=== PATIENT | female | born 1935 | race Caucasian/White ===

== ENCOUNTER 2021-03-25 18:39 | Inpatient (IN) | payer MEDICARE ==
[~2021-03-25] VITALS: Ht 175.3 cm; Wt 77.1 kg
[~2021-03-25 18:39] MED LIST: AFRIN; ASPIRIN81 MG PO; ATORVASTATIN CA20 MG PO; BENTYL 20MG TAB20 MG PO; BUSPAR 5MG TABLE5 MG PO; CEFUROXIME250 MG PO; CELEBREX 200MG200 MG PO; CELEBREX200 MG PO; CELECOXIB100 MG PO; CYCLOBENZAPRINE10 MG PO; EVISTA60 MG PO; FLAGYL500 MG PO; HYDROCODON-ACE1 EAC4 PO; INDERAL TAB 4040 MG PO; ISOSORBIDE MONO30 MG PO; K-DUR TAB 10 M10 MEQ PO; K-DUR TAB 20 M20 MEQ PO; LASIX20 MG PO; LEVOFLOXACIN250 MG PO; LEVOTHYROXINE50 MCG PO; LIPITOR TAB 1010 MG PO; LISINOPRIL10 MG PO; LOPRESSOR 25 MG25 MG PO; MACROBID 100 M100 MG PO; MEDROL DOSEPAK 24 MG PO; MUCINEX600 MG PO; NEURONTIN300 MG PO; NEXIUM40 MG PO; NITRO-DUR 0.2 MG1 EA TD; NITROFURANTOIN50 MG PO; NORCO 5-325 TA1 EACH PO; OMNICEF 300 MG300 MG PO; PHENERGAN 12.12.5 M1 PO; PROVENTIL HFA6.7 GM INH; SENNA-TIME S T1 EACH PO; SEROQUEL TAB 2525 MG PO; SEROQUEL25 MG PO; SYNTHROID300 MCG PO; TELMISARTAN-HC1 EAC1 PO; THERAGRAN M TAB1 EA PO; TYLENOL WITH C1 EACH PO; ULTRAM50 MG PO; VALIUM 5 MG TAB5 MG PO; VALIUM5 MG PO; VENTOLIN HFA INH; VOLTAREN EC 5050 MG PO; WELLBUTRIN XL300 M1 PO; ZITHROMAX TRI-500 MG PO; ZOFRAN ODT 4 MG4 MG SL
[2021-03-25 19:58] LABS: HEMOGLOBIN 12.8 gm/dl (12.3-15.3); RED BLOOD COUNT 3.88 M/UL (4.00-5.10); WHITE BLOOD COUNT 5.5 K/UL (4.5-11.0)
--- NOTE | 2021-03-26 01:24 | NUR ---
UPON DOING PT ADMISSION, PT WAS NOT ABLE TO DEFINITIVELY SAY WHAT PHARMACY SHE USES. PT ALSO DOES NOT KNOW THE NAMES OR DOSES OF ANY MEDICATION SHE TAKES. DAUGHTER TO BE CALLED IN AM FOR PHARMACY NAME AND PHARMACY WILL BE CONTACTED FOR HOME MED LIST IN AM DURING OPERATING HOURS. NOTIFIED.
[2021-03-26 05:20] LABS: HEMOGLOBIN 14.3 gm/dl (12.3-15.3)
[2021-03-26 05:21] LABS: RED BLOOD COUNT 4.42 M/UL (4.00-5.10); WHITE BLOOD COUNT 7.9 K/UL (4.5-11.0)
[2021-03-26 05:40] LABS: BUN/CREATININE RATIO 18 (0-10)
[2021-03-26] MEDS ORDERED: SYNTHROID50 MCG PO (08:23)
[2021-03-26] MEDS ORDERED: LISINOPRIL20 MG PO (08:23)
[2021-03-26] MEDS ORDERED: LOPRESSOR 25 MG25 MG PO (08:24)
[2021-03-26] MEDS ORDERED: HYDROCODONE-AC1 EACH PO (09:17)
[2021-03-26] MEDS ORDERED: GABAPENTIN300 MG PO (09:18)
[2021-03-26] MEDS ORDERED: DITROPAN 5 MG TA5 MG PO (09:18)
[2021-03-27 03:04] LABS: HEMOGLOBIN 14.2 gm/dl (12.3-15.3); RED BLOOD COUNT 4.43 M/UL (4.00-5.10); WHITE BLOOD COUNT 9.2 K/UL (4.5-11.0)
[2021-03-27] MEDS ORDERED: HYDROCODON-ACE1 EAC4 PO (21:37)
[2021-03-27] MEDS ORDERED: LEVOFLOXACIN500 MG PO (21:37)
[2021-03-28 03:04] LABS: RED BLOOD COUNT 4.02 M/UL (4.00-5.10); WHITE BLOOD COUNT 8.7 K/UL (4.5-11.0)
[2021-03-28] MEDS ORDERED: ASPIRIN EC81 MG PO (08:53)
[2021-03-28] MEDS ORDERED: ISOSORBIDE MONO30 MG PO (08:53)
[2021-03-28] MEDS ORDERED: LISINOPRIL40 MG PO (08:53)
[2021-03-29 01:35] LABS: HEMOGLOBIN 12.9 gm/dl (12.3-15.3); RED BLOOD COUNT 3.97 M/UL (4.00-5.10); WHITE BLOOD COUNT 8.4 K/UL (4.5-11.0)
[2021-03-29] MEDS ORDERED: NORVASC10 MG PO (08:49)
[2021-03-29] MEDS ORDERED: HYDRALAZINE HCL25 MG PO (08:49)
== END 2021-03-29 09:53 | disposition home health service (06) | DRG 242 ==
LOC: ER1 18:39 → CDU 22:38 → MED SURG 4 22:38 → PROG CARE 03-26 17:19
PROVIDERS: Emergency Medicine; Internal Medicine; ADMIT Internal Medicine
PROC: B24BZZ4 Ultrasonography of Heart with Aorta, Transesophageal (ICD-10-PCS; 2021-03-26)
PROC: 4A027FZ Measurement of Cardiac Rhythm, Via Natural or Artificial Opening (ICD-10-PCS; 2021-03-26)
PROC: 4A0274Z Measurement of Cardiac Electrical Activity, Via Natural or Artificial Opening (ICD-10-PCS; 2021-03-26)
PROC: 0JH606Z Insertion of Pacemaker, Dual Chamber into Chest Subcutaneous Tissue and Fascia, Open Approach (ICD-10-PCS; principal; 2021-03-27)
PROC: 02H63JZ Insertion of Pacemaker Lead into Right Atrium, Percutaneous Approach (ICD-10-PCS; 2021-03-27)
PROC: 02HK3JZ Insertion of Pacemaker Lead into Right Ventricle, Percutaneous Approach (ICD-10-PCS; 2021-03-27)
PROC: 02HV33Z Insertion of Infusion Device into Superior Vena Cava, Percutaneous Approach (ICD-10-PCS; 2021-03-27)
DX: I44.2 Atrioventricular block, complete (principal); G92 Toxic encephalopathy; I16.1 Hypertensive emergency; I50.32 Chronic diastolic (congestive) heart failure; N39.0 Urinary tract infection, site not specified; Z20.822 Contact with and (suspected) exposure to COVID-19; G89.29 Other chronic pain; Z96.641 Presence of right artificial hip joint; I44.7 Left bundle-branch block, unspecified; I11.0 Hypertensive heart disease with heart failure; I49.5 Sick sinus syndrome; I08.1 Rheumatic disorders of both mitral and tricuspid valves; F10.10 Alcohol abuse, uncomplicated; F17.210 Nicotine dependence, cigarettes, uncomplicated; E03.9 Hypothyroidism, unspecified; R53.81 Other malaise; Z88.0 Allergy status to penicillin; Z90.49 Acquired absence of other specified parts of digestive tract; Z82.49 Family history of ischemic heart disease and other diseases of the circulatory system; Z83.6 Family history of other diseases of the respiratory system; Z79.82 Long term (current) use of aspirin; Z79.01 Long term (current) use of anticoagulants
CPT/HCPCS: ECHO; 33208; 36415; 36600; 70450; 71045; 71250; 74150; 78452; 80048; 80053; 81001; 82140; 82550; 82553; 82803; 82962; 83605; 83690; 83735; 83874; 84100; 84439; 84443; 84484; 85025; 86140; 93005; 93017; 93306; 96374; 96375; 96376; 99152; 99153; 99285; A9502; C1898; C2621; G0378; J0360; J1644; J1650; J2250; J2270; J2310; J2405; J2785; J3010; J3370; J7040; J7050; J7070; U0002

== ENCOUNTER 2021-04-05 14:38 | Observation (INO) | payer MEDICARE ==
[~2021-04-05] VITALS: Ht 175.3 cm; Wt 74.8 kg
[~2021-04-05 14:38] MED LIST changes: +ASPIRIN EC81 MG PO; +DITROPAN 5 MG TA5 MG PO; +GABAPENTIN300 MG PO; +HYDRALAZINE HCL25 MG PO; +HYDROCODONE-AC1 EACH PO; +LEVOFLOXACIN500 MG PO; +LISINOPRIL20 MG PO; +LISINOPRIL40 MG PO; +NORVASC10 MG PO; +SYNTHROID50 MCG PO
[2021-04-05 15:45] LABS: RED BLOOD COUNT 4.03 M/UL (4.00-5.10); WHITE BLOOD COUNT 8.5 K/UL (4.5-11.0)
[2021-04-05] MEDS ORDERED: NYSTATIN1 EAC6 MC (19:57)
[2021-04-06 04:26] LABS: WHITE BLOOD COUNT 6.5 K/UL (4.5-11.0)
[2021-04-06 04:27] LABS: RED BLOOD COUNT 3.42 M/UL (4.00-5.10)
[2021-04-06 04:55] LABS: BUN/CREATININE RATIO 16 (0-10)
== END 2021-04-06 17:52 | disposition home or self-care (01) ==
LOC: ER1 14:38 → CDU 17:03 → MED SURG 4 17:03
PROVIDERS: Emergency Medicine; ADMIT Internal Medicine
DX: R55 Syncope and collapse (principal); I95.1 Orthostatic hypotension; N17.9 Acute kidney failure, unspecified; R10.9 Unspecified abdominal pain; I44.2 Atrioventricular block, complete; I44.7 Left bundle-branch block, unspecified; I11.0 Hypertensive heart disease with heart failure; I50.32 Chronic diastolic (congestive) heart failure; E03.9 Hypothyroidism, unspecified; G89.29 Other chronic pain; M54.9 Dorsalgia, unspecified; Z20.822 Contact with and (suspected) exposure to COVID-19; Z88.0 Allergy status to penicillin; Z79.82 Long term (current) use of aspirin; Z79.899 Other long term (current) drug therapy; Z95.0 Presence of cardiac pacemaker
CPT/HCPCS: 70450; 71045; 80048; 80053; 82550; 82553; 83690; 83735; 83874; 83880; 84100; 84484; 85025; 85610; 85730; 86140; 93005; 99285; G0378; J7030; U0002

== ENCOUNTER 2021-04-26 20:09 | Emergency (ER) | payer MEDICARE ==
[~2021-04-26 20:09] MED LIST changes: +NYSTATIN1 EAC6 MC
[2021-04-26] MEDS ORDERED: BUSPIRONE HCL5 MG PO (21:06)
[2021-04-26] MEDS ORDERED: HYDROCODONE-AC1 EACH PO (21:06)
[2021-04-26] MEDS ORDERED: NEURONTIN300 MG PO (21:06)
== END 2021-04-26 21:15 | disposition home or self-care (01) ==
LOC: ER1 20:09
DX: Z76.0 Encounter for issue of repeat prescription (principal); M54.5 Low back pain; F41.9 Anxiety disorder, unspecified
CPT/HCPCS: 99281

== ENCOUNTER 2021-06-21 18:07 | Observation (INO) | payer MEDICARE ==
[~2021-06-21] VITALS: Ht 167.6 cm; Wt 84.4 kg
[~2021-06-21 18:07] MED LIST changes: +BUSPIRONE HCL5 MG PO
[2021-06-21 19:31] LABS: HEMOGLOBIN 14.9 gm/dl (12.3-15.3); RED BLOOD COUNT 4.86 M/UL (4.00-5.10); WHITE BLOOD COUNT 8.9 K/UL (4.5-11.0)
[2021-06-21 19:55] LABS: BUN/CREATININE RATIO 17 (0-10)
[2021-06-22 07:41] LABS: HEMOGLOBIN 13.4 gm/dl (12.3-15.3); RED BLOOD COUNT 4.39 M/UL (4.00-5.10)
[2021-06-22 07:45] LABS: WHITE BLOOD COUNT 12.1 K/UL (4.5-11.0)
[2021-06-22 08:09] LABS: BUN/CREATININE RATIO 21 (0-10)
[2021-06-23 07:03] LABS: HEMOGLOBIN 11.8 gm/dl (12.3-15.3); RED BLOOD COUNT 3.83 M/UL (4.00-5.10); WHITE BLOOD COUNT 9.5 K/UL (4.5-11.0)
[2021-06-24] MEDS ORDERED: METOPROLOL SUCC50 MG PO (13:57)
[2021-06-24] MEDS ORDERED: AMLODIPINE BESYL5 MG PO (13:57)
== END 2021-06-24 15:16 | disposition home health service (06) ==
LOC: ER1 18:07 → CDU 22:20 → M/S 22:20
PROVIDERS: Family Medicine; Internal Medicine; Internal Medicine Infectious Disease; ADMIT Internal Medicine
DX: R53.83 Other fatigue (principal); R11.0 Nausea; R47.81 Slurred speech; M62.81 Muscle weakness (generalized); I11.0 Hypertensive heart disease with heart failure; I50.32 Chronic diastolic (congestive) heart failure; I44.2 Atrioventricular block, complete; I44.7 Left bundle-branch block, unspecified; I47.1 Supraventricular tachycardia; I07.1 Rheumatic tricuspid insufficiency; E03.9 Hypothyroidism, unspecified; G89.29 Other chronic pain; M54.9 Dorsalgia, unspecified; K42.9 Umbilical hernia without obstruction or gangrene; I49.5 Sick sinus syndrome; R94.6 Abnormal results of thyroid function studies; T50.905A Adverse effect of unspecified drugs, medicaments and biological substances, initial encounter; Z20.822 Contact with and (suspected) exposure to COVID-19; Z95.0 Presence of cardiac pacemaker; Z96.641 Presence of right artificial hip joint; Z88.0 Allergy status to penicillin; Z88.1 Allergy status to other antibiotic agents; Z88.8 Allergy status to other drugs, medicaments and biological substances; Z79.82 Long term (current) use of aspirin; Z79.1 Long term (current) use of non-steroidal anti-inflammatories (NSAID); Z79.899 Other long term (current) drug therapy
CPT/HCPCS: 70450; 71045; 80048; 80053; 80307; 82140; 82550; 82553; 83735; 83874; 84439; 84443; 84484; 85025; 85610; 85730; 92526; 92610; 93005; 96374; 97110-GP-CQ; 97116-GP-CQ; 97161; 97530-GP-CQ; 99285; G0378; J1650; U0002

== ENCOUNTER 2021-09-02 09:19 | Emergency (ER) | payer MEDICARE ==
[~2021-09-02 09:19] MED LIST changes: +AMLODIPINE BESYL5 MG PO; +METOPROLOL SUCC50 MG PO
[2021-09-02 11:14] LABS: HEMOGLOBIN 12.9 gm/dl (12.3-15.3); RED BLOOD COUNT 4.07 M/UL (4.00-5.10); WHITE BLOOD COUNT 6.7 K/UL (4.5-11.0)
[2021-09-02 11:45] LABS: BUN/CREATININE RATIO 16 (0-10)
[2021-09-02] MEDS ORDERED: NORVASC5 MG PO (13:50)
[2021-09-02] MEDS ORDERED: TOPROL XL50 MG PO (13:50)
[2021-09-02] MEDS ORDERED: LISINOPRIL40 MG PO (13:50)
== END 2021-09-02 14:00 | disposition home or self-care (01) ==
LOC: ER1 09:19
PROVIDERS: Student in an Organized Health Care Education/Training Program
DX: I11.9 Hypertensive heart disease without heart failure (principal); Z88.0 Allergy status to penicillin
CPT/HCPCS: 71045; 80048; 82550; 82553; 83874; 84484; 85025; 93005; 99284

== ENCOUNTER 2022-01-30 16:00 | Observation (INO) | payer MEDICARE ==
[~2022-01-30] VITALS: Ht 172.7 cm; Wt 81.6 kg
[~2022-01-30 16:00] MED LIST changes: +NORVASC5 MG PO; -SYNTHROID50 MCG PO; +TOPROL XL50 MG PO
[2022-01-30 16:35] LABS: HEMOGLOBIN 12.8 gm/dl (12.3-15.3); RED BLOOD COUNT 3.97 M/UL (4.00-5.10); WHITE BLOOD COUNT 5.9 K/UL (4.5-11.0)
[2022-01-31 01:51] LABS: BUN/CREATININE RATIO 19 (0-10)
[2022-01-31] MEDS ORDERED: SYNTHROID50 MCG PO (08:23)
[2022-01-31] MEDS ORDERED: NEURONTIN300 MG PO (10:46)
[2022-01-31] MEDS ORDERED: CRESTOR10 MG PO (12:03)
[2022-01-31] MEDS ORDERED: ISOSORBIDE MONO30 MG PO (12:06)
[2022-01-31] MEDS ORDERED: HYDROCODON-ACE1 EAC4 PO (12:07)
[2022-01-31] MEDS ORDERED: NITROGLYCERIN0.4 MG SL (12:09)
[2022-02-01] MEDS ORDERED: ASPIRIN EC81 MG PO (15:45)
[2022-02-01] MEDS ORDERED: THERAGRAN M TAB1 EA PO (15:45)
[2022-02-01] MEDS ORDERED: ISOSORBIDE MONO60 MG PO (15:45)
[2022-02-01] MEDS ORDERED: AMLODIPINE BESYL5 MG PO (15:45)
[2022-02-01] MEDS ORDERED: CELECOXIB100 MG PO (15:45)
[2022-02-01] MEDS ORDERED: AMLODIPINE BESY10 MG PO (15:51)
[2022-02-01] MEDS ORDERED: PROTONIX 40 MG40 M1 PO (15:51)
--- NOTE | 2022-02-01 15:58 | NUR ---
report given to admitting home health nurse nila
== END 2022-02-01 17:45 | disposition home health service (06) ==
LOC: ER1 16:00 → CDU 18:21 → M/S 01-31 01:20
PROVIDERS: Nurse Practitioner; ADMIT Internal Medicine Infectious Disease
DX: R07.89 Other chest pain (principal); I16.0 Hypertensive urgency; I10 Essential (primary) hypertension; I44.7 Left bundle-branch block, unspecified; I49.5 Sick sinus syndrome; E03.9 Hypothyroidism, unspecified; G89.4 Chronic pain syndrome; M54.9 Dorsalgia, unspecified; E53.8 Deficiency of other specified B group vitamins; Z20.822 Contact with and (suspected) exposure to COVID-19; Z88.0 Allergy status to penicillin; Z79.82 Long term (current) use of aspirin; Z79.890 Hormone replacement therapy; Z79.899 Other long term (current) drug therapy; Z88.1 Allergy status to other antibiotic agents
CPT/HCPCS: 0240U; 36415; 71045; 80048; 80053; 81001; 82550; 82553; 82607; 82746; 83735; 84443; 84484; 85025; 93005; 96372; 96374; 97161; 97530; 99285; G0378; J0360; J3420

== ENCOUNTER → 2022-07-08 | Outpatient (CLI) | payer MEDICARE ==
[~2022-07-08] MED LIST changes: +AMLODIPINE BESY10 MG PO; +CRESTOR10 MG PO; +ISOSORBIDE MONO60 MG PO; +NITROGLYCERIN0.4 MG SL; +PROTONIX 40 MG40 M1 PO; +SYNTHROID50 MCG PO
== END ==
LOC: EXRD 06-24 08:45
DX: R10.12 Left upper quadrant pain (principal); G89.29 Other chronic pain
CPT/HCPCS: 76705